=== PATIENT | female | born 1950 | race Caucasian/White ===

== ENCOUNTER 2016-12-12 12:16 | Inpatient (IN) | payer MEDICARE ==
[~2016-12-12] VITALS: Ht 167.6 cm; Wt 96.4 kg
[2016-12-12] MEDS ORDERED: NORVASC2.5 MG PO (13:11)
[2016-12-12] MEDS ORDERED: TIROSINT100 MC1 PO (13:11)
[2016-12-12] MEDS ORDERED: DYAZIDE 25 MG-31 CAP PO (13:12)
[2016-12-12 13:31] LABS: HEMATOCRIT 45.3 % (37.0-47.0); HEMOGLOBIN 15.3 g/dl (12.5-16.0); MEAN CELL VOLUME 84 fl (80.0-100.0); MEAN CORPUSCULAR HEMOGLOBIN 28 pg (27.0-31.0); MEAN CORPUSCULAR HGB CONC 34 g/dl (33.0-37.0); MEAN PLATELET VOLUME 9.4 fl (7.4-10.4); PLATELET COUNT 168 K/mm3 (130-400); WHITE BLOOD COUNT 10.7 K/mm3 (4.8-10.8)
[2016-12-12 13:32] LABS: ADD PATHOLOGY DIFF REVIEW NO
[2016-12-12 13:55] LABS: ADJUSTED CALCIUM 8.9 mg/dL (8.4-10.2); ALBUMIN 3.7 gm/dL (3.5-5.0); BILIRUBIN,TOTAL 0.9 mg/dL (0.0-1.0); C-REACTIVE PROTEIN 2.1 mg/dL (0.0-0.9); CALCIUM 8.7 mg/dL (8.4-10.2); CREATININE, serum 1.03 mg/dL (0.52-1.25); POTASSIUM 3.5 mmol/L (3.4-5.0); TOTAL PROTEIN 7.3 gm/dL (6.4-8.2)
[2016-12-12 14:05] LABS: BAND 8 % (0-10); BASOPHIL 1 % (0-2); EOSINOPHIL 1 % (0-4); LYMPHOCYTE 28 % (20.0-51.0); METAMYELOCYTE 1 % (0-0); NEUTROPHILS 52 % (42.0-75.2); PLATELET ESTIMATE NORMAL (NORMAL); TOTAL CELLS COUNTED 100
[2016-12-12 14:15] LABS: INR 1.1 (0.8-3.0); PROTHROMBIN TIME 11.7 SECONDS (9.7-12.8)
[2016-12-12 17:19] VITALS: BP 112/70; PULSE 86; TEMP 97.5
[2016-12-12 21:19] VITALS: BP 105/69; PULSE 95; TEMP 99.9
[2016-12-13] VITALS (8 sets, daily range): BP systolic 105–125; BP diastolic 62–84; PULSE 81–105; TEMP 98–100.2
[2016-12-13 08:02] LABS: BASO # 0.1 (0.0-0.2); BASO % 0.7 % (0.0-2.0); EOS # 0.1 (0.0-0.7); EOS % 1.2 % (0-4.0); GRAN # 3.4 (1.4-6.5); GRAN % 45.7 % (42.2-75.2); HEMATOCRIT 40.3 % (37.0-47.0); LYMPH % 40.5 % (20.0-51.0); MEAN CELL VOLUME 85 fl (80.0-100.0); MEAN CORPUSCULAR HEMOGLOBIN 28 pg (27.0-31.0); MEAN CORPUSCULAR HGB CONC 33 g/dl (33.0-37.0); MEAN PLATELET VOLUME 9.4 fl (7.4-10.4); MONO # 0.8 (0.1-0.6); MONO % 10.9 % (1.7-9.3); PLATELET COUNT 151 K/mm3 (130-400); RED BLOOD COUNT 4.72 M/mm3 (4.10-5.30); WHITE BLOOD COUNT 7.3 K/mm3 (4.8-10.8)
[2016-12-13 08:10] LABS: HEMOGLOBIN 13.1 g/dl (12.5-16.0)
[2016-12-13 08:12] LABS: ADJUSTED CALCIUM 8.7 mg/dL (8.4-10.2); ALBUMIN 2.9 gm/dL (3.5-5.0); BILIRUBIN,TOTAL 0.8 mg/dL (0.0-1.0); CALCIUM 7.8 mg/dL (8.4-10.2); CREATININE, serum 0.94 mg/dL (0.52-1.25); POTASSIUM 3.2 mmol/L (3.4-5.0); TOTAL PROTEIN 5.9 gm/dL (6.4-8.2)
[2016-12-13 09:29] LABS: INR 1.1 (0.8-3.0); PROTHROMBIN TIME 11.9 SECONDS (9.7-12.8)
[2016-12-13 14:03] LABS: MAGNESIUM 2.1 mg/dL (1.6-2.3)
[2016-12-14 03:01] VITALS: BP 117/76; PULSE 99; TEMP 100.5
[2016-12-14 08:27] VITALS: BP 122/62; PULSE 94; TEMP 98.9
[2016-12-14 08:58] LABS: BASO % 0.6 % (0.0-2.0); EOS % 0.6 % (0-4.0); GRAN # 3.2 (1.4-6.5); GRAN % 47.9 % (42.2-75.2); HEMATOCRIT 39.2 % (37.0-47.0); HEMOGLOBIN 12.9 g/dl (12.5-16.0); LYMPH # 2.5 (1.2-3.4); LYMPH % 38.3 % (20.0-51.0); MEAN CELL VOLUME 86 fl (80.0-100.0); MEAN CORPUSCULAR HEMOGLOBIN 28 pg (27.0-31.0); MEAN CORPUSCULAR HGB CONC 33 g/dl (33.0-37.0); MEAN PLATELET VOLUME 9.6 fl (7.4-10.4); MONO # 0.8 (0.1-0.6); PLATELET COUNT 163 K/mm3 (130-400); RED BLOOD COUNT 4.58 M/mm3 (4.10-5.30); WHITE BLOOD COUNT 6.6 K/mm3 (4.8-10.8)
[2016-12-14 09:07] LABS: INR 1.1 (0.8-3.0); PROTHROMBIN TIME 12.4 SECONDS (9.7-12.8)
[2016-12-14 09:10] LABS: CALCIUM 7.8 mg/dL (8.4-10.2); CREATININE, serum 0.84 mg/dL (0.52-1.25); POTASSIUM 3.7 mmol/L (3.4-5.0)
[2016-12-14 11:34] VITALS: BP 123/71; PULSE 100; TEMP 98.7
[2016-12-14 15:10] VITALS: BP 128/72; PULSE 100; TEMP 99.6
[2016-12-14 20:00] VITALS: BP 114/73; PULSE 97; TEMP 99.5
[2016-12-15] VITALS (19 sets, daily range): BP systolic 114–152; BP diastolic 70–105; PULSE 79–115; TEMP 97.8–101
[2016-12-15 08:59] LABS: INR 1.1 (0.8-3.0); PROTHROMBIN TIME 12.2 SECONDS (9.7-12.8)
[2016-12-15 17:57] LABS: MUCOUS Present /lpf; PH 6 (5-8); SQUAMOUS EPITHELIAL 0-2 /hpf; URINE APPEARANCE Clear; URINE BACTERIA None Seen /hpf; URINE BILIRUBIN Negative (NEGATIVE); URINE BLOOD Negative (NEGATIVE); URINE COLOR Yellow; URINE GLUCOSE Negative (NEGATIVE); URINE KETONE Trace (NEGATIVE); URINE LEUKOCYTE ESTERASE Negative (NEGATIVE); URINE PROTEIN(semi-quant) Negative (NEGATIVE); URINE RBC 0-2 /hpf; URINE UROBILINOGEN Negative (NEGATIVE); URINE WBC 0-2 /hpf
[2016-12-15 18:14] LABS: COLLECTION METHOD CLEAN CATCH
[2016-12-16 00:45] VITALS: BP 148/77; PULSE 89; TEMP 99
[2016-12-16 02:55] VITALS: BP 131/72; PULSE 91; TEMP 98.5
[2016-12-16 07:04] LABS: BASO % 0.7 % (0.0-2.0); EOS # 0.1 (0.0-0.7); EOS % 1.5 % (0-4.0); GRAN # 2.6 (1.4-6.5); GRAN % 44.1 % (42.2-75.2); HEMATOCRIT 38.1 % (37.0-47.0); HEMOGLOBIN 12.4 g/dl (12.5-16.0); LYMPH # 2.5 (1.2-3.4); LYMPH % 41.1 % (20.0-51.0); MEAN CELL VOLUME 86 fl (80.0-100.0); MEAN CORPUSCULAR HEMOGLOBIN 28 pg (27.0-31.0); MEAN CORPUSCULAR HGB CONC 33 g/dl (33.0-37.0); MEAN PLATELET VOLUME 9.6 fl (7.4-10.4); MONO # 0.7 (0.1-0.6); MONO % 11.6 % (1.7-9.3); PLATELET COUNT 145 K/mm3 (130-400); RED BLOOD COUNT 4.43 M/mm3 (4.10-5.30)
[2016-12-16 07:10] LABS: ADJUSTED CALCIUM 8.7 mg/dL (8.4-10.2); ALBUMIN 2.6 gm/dL (3.5-5.0); BILIRUBIN,TOTAL 1.4 mg/dL (0.0-1.0); CALCIUM 7.6 mg/dL (8.4-10.2); CREATININE, serum 0.89 mg/dL (0.52-1.25); POTASSIUM 4.2 mmol/L (3.4-5.0); TOTAL PROTEIN 5.5 gm/dL (6.4-8.2)
[2016-12-16 07:14] LABS: INR 1.2 (0.8-3.0); PROTHROMBIN TIME 13.3 SECONDS (9.7-12.8)
[2016-12-16 08:33] VITALS: BP 116/77; PULSE 87; TEMP 97.4
[2016-12-16 12:01] VITALS: BP 117/70; PULSE 101; TEMP 97.8
[2016-12-16 15:53] VITALS: BP 114/67; PULSE 107; TEMP 98.1
[2016-12-16 20:01] VITALS: BP 126/73; PULSE 109; TEMP 98.5
[2016-12-17 00:42] VITALS: BP 113/71; PULSE 85; TEMP 98.7
[2016-12-17 03:40] VITALS: BP 102/52; PULSE 86; TEMP 98.4
[2016-12-17 07:46] VITALS: BP 120/78; PULSE 88; TEMP 98.8
[2016-12-17 08:27] LABS: BASO % 0.7 % (0.0-2.0); EOS # 0.1 (0.0-0.7); EOS % 2.3 % (0-4.0); GRAN # 2.3 (1.4-6.5); GRAN % 41.8 % (42.2-75.2); HEMATOCRIT 40.1 % (37.0-47.0); HEMOGLOBIN 12.9 g/dl (12.5-16.0); LYMPH # 2.4 (1.2-3.4); LYMPH % 42.4 % (20.0-51.0); MEAN CELL VOLUME 87 fl (80.0-100.0); MEAN CORPUSCULAR HEMOGLOBIN 28 pg (27.0-31.0); MEAN CORPUSCULAR HGB CONC 32 g/dl (33.0-37.0); MEAN PLATELET VOLUME 9.2 fl (7.4-10.4); MONO # 0.7 (0.1-0.6); MONO % 11.7 % (1.7-9.3); PLATELET COUNT 181 K/mm3 (130-400); RED BLOOD COUNT 4.61 M/mm3 (4.10-5.30); WHITE BLOOD COUNT 5.6 K/mm3 (4.8-10.8)
[2016-12-17 08:45] LABS: ADJUSTED CALCIUM 8.7 mg/dL (8.4-10.2); ALBUMIN 2.9 gm/dL (3.5-5.0); BILIRUBIN,TOTAL 0.6 mg/dL (0.0-1.0); CALCIUM 7.8 mg/dL (8.4-10.2); CREATININE, serum 0.86 mg/dL (0.52-1.25); POTASSIUM 4.1 mmol/L (3.4-5.0); TOTAL PROTEIN 5.9 gm/dL (6.4-8.2)
[2016-12-17 09:56] LABS: INR 1.4 (0.8-3.0); PROTHROMBIN TIME 15.7 SECONDS (9.7-12.8)
[2016-12-17 11:28] VITALS: BP 117/77; PULSE 97; TEMP 98.4
[2016-12-17 15:16] VITALS: BP 144/88; PULSE 95; TEMP 98.5
[2016-12-17 23:10] VITALS: BP 117/69; PULSE 94; TEMP 98.3
[2016-12-18 03:05] VITALS: BP 118/73; PULSE 74; TEMP 98.6
[2016-12-18 07:08] LABS: INR 2.1 (0.8-3.0); PROTHROMBIN TIME 23.5 SECONDS (9.7-12.8)
[2016-12-18 08:34] VITALS: BP 105/66; PULSE 91; TEMP 98.5
[2016-12-18 11:37] VITALS: BP 103/61; PULSE 89; TEMP 98.4
[2016-12-18 15:10] VITALS: BP 127/75; PULSE 92; TEMP 97.9
[2016-12-18 21:02] VITALS: BP 123/76; PULSE 93; TEMP 98
[2016-12-19] VITALS (7 sets, daily range): BP systolic 111–176; BP diastolic 64–99; PULSE 62–105; TEMP 97.9–98.7
[2016-12-19 08:22] LABS: INR 1.8 (0.8-3.0); PROTHROMBIN TIME 20.5 SECONDS (9.7-12.8)
[2016-12-20 03:52] VITALS: BP 137/71; PULSE 81; TEMP 98.2
[2016-12-20 07:16] LABS: PROTHROMBIN TIME 22.9 SECONDS (9.7-12.8)
[2016-12-20 07:47] VITALS: BP 136/86; PULSE 106; TEMP 99.1
[2016-12-20] MEDS ORDERED: COUMADIN 5MG5 MG/TAB PO (09:10)
[2016-12-20] MEDS ORDERED: COUMADIN 77.5 MG/TAB PO (09:11)
== END 2016-12-20 10:56 | disposition home or self-care (01) | DRG 167 ==
LOC: COL.ER 12:16 → MEDICAL 15:35
PROVIDERS: Internal Medicine; Nurse Practitioner; Nurse Practitioner Family; Physician Assistant; Radiology Diagnostic Radiology
PROC: 06H03DZ Insertion of Intraluminal Device into Inferior Vena Cava, Percutaneous Approach (ICD-10-PCS; principal; 2016-12-13)
DX: I26.99 Other pulmonary embolism without acute cor pulmonale (principal); I82.422 Acute embolism and thrombosis of left iliac vein; I82.432 Acute embolism and thrombosis of left popliteal vein; E87.1 Hypo-osmolality and hyponatremia; I10 Essential (primary) hypertension; M06.9 Rheumatoid arthritis, unspecified; N63 Unspecified lump in breast; E87.6 Hypokalemia
CPT/HCPCS: 99223-AI; 99232-AI; 99233-AI; 99239; A9284; C1757; C1769; C1880; C1887; C1894; J1644; J1650; J2250; J2997; J3010; J7030; Q9967

== ENCOUNTER → 2020-07-18 | Outpatient (CLI) | payer MEDICARE ==
[~2020-07-18] MED LIST: COUMADIN 5MG5 MG/TAB PO; COUMADIN 77.5 MG/TAB PO; DYAZIDE 25 MG-31 CAP PO; NORVASC2.5 MG PO; TIROSINT100 MC1 PO
== END ==
LOC: MC.RAD 13:00
DX: Z85.3 Personal history of malignant neoplasm of breast (principal); Z98.890 Other specified postprocedural states

== ENCOUNTER → 2020-09-12 | Outpatient (CLI) | payer MEDICARE | LOC: COL.VAS 12:47 | DX: I11.9 Hypertensive heart disease without heart failure (principal); I51.7 Cardiomegaly ==

== ENCOUNTER → 2020-10-23 | Outpatient (CLI) | payer MEDICARE | LOC: ZCOL.LAB 09:28 | DX: Z02.83 Encounter for blood-alcohol and blood-drug test (principal); Z20.822 Contact with and (suspected) exposure to COVID-19 ==

== ENCOUNTER → 2021-09-17 | Outpatient (CLI) | payer MEDICARE | LOC: MC.RAD 07-20 10:00 | DX: Z12.31 Encounter for screening mammogram for malignant neoplasm of breast (principal); Z85.3 Personal history of malignant neoplasm of breast ==

== ENCOUNTER 2021-12-01 12:33 | Inpatient (IN) | payer MEDICARE ==
[~2021-12-01] VITALS: Ht 167.6 cm; Wt 107.1 kg
[2022-01-18] VITALS (11 sets, daily range): BP systolic 98–142; BP diastolic 66–84; PULSE 48–93; TEMP 97.7–98.6
[2022-01-18] MEDS ORDERED: FEMARA PO (05:43)
[2022-01-18] MEDS ORDERED: SYNTHROID0.1 MG/TAB PO (05:43)
[2022-01-18] MEDS ORDERED: ZESTRIL40 MG PO (05:44)
[2022-01-18] MEDS ORDERED: NORVASC2.5 MG PO (05:44)
[2022-01-18] MEDS ORDERED: TOPROL XL 50MG50 MG PO (05:44)
[2022-01-18] MEDS ORDERED: LIPITOR 40MG TA40 MG PO (05:45)
[2022-01-18] MEDS ORDERED: VITAMIN D31000 IU PO (05:45)
[2022-01-18] MEDS ORDERED: TYLENOL 500MG500 MG PO (05:45)
[2022-01-18] MEDS ORDERED: VITAMIN C500 MG PO (05:47)
[2022-01-18] MEDS ORDERED: FOLIC ACID0.4 MG PO ×2 (05:48→06:08)
[2022-01-18] MEDS ORDERED: NATURAL IRON65 MG PO (06:08)
--- NOTE | 2022-01-18 06:15 | NUR ---
Patient arrived to unit. Brought into bay [address] with , Donte. Patient ambulating with walking stick. CHG scrub done to right knee. Thigh high tyler hose applied to left lower extremity. Pre-surgery medications given per AUG. Scopolamine patch applied behind right ear. Patient states previous breast cancer surgery with lymph node removal on right side. Restricted Extremity arm band applied to right wrist. Patient consented to surgery. at bedside. Call light left within reach.
--- NOTE | 2022-01-18 08:50 | NUR ---
Medication reconcilliation lists hazardous drug: Femara (letrazole). Staff to wear PPE when handling urine for 10 days after last dose. If medication is actively administered, precautions are ongoing. 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
--- NOTE | 2022-01-18 14:48 | NUR ---
PT UP TO RECLINER AFTER VOIDING IN BR. INITIAL THERAPY EVAL COMPLETE, PT TOLERATING WELL.
--- NOTE | 2022-01-18 20:11 | NUR ---
PT A&O RESTING IN BED. AT BEDSIDE. PT RATES RT KNEE PAIN A 11/20. ICE APPLIED TO KNEE. LT HAND INT PATENT. SCDS APPLIED TO BLE. RT KNEE DRESSING CDI. NO OTHER NEEDS AT THIS TIME. CALL LIGHT WITHIN REACH.
[2022-01-19 00:45] VITALS: BP 151/70; PULSE 61; TEMP 99.3
[2022-01-19 04:16] VITALS: BP 134/70; PULSE 51; TEMP 98.6
[2022-01-19 06:24] LABS: HEMATOCRIT 43.7 % (37.0-47.0); HEMOGLOBIN 14.2 g/dl (12.5-16.0)
[2022-01-19 08:00] VITALS: BP 147/82; PULSE 51; TEMP 98.9
--- NOTE | 2022-01-19 09:48 | NUR ---
EDISON met with the patient and her , Donte (ph#[phone]), to discuss discharge plan. The patient lives in [place] with her . She reports independence with ADLs and has a walking stick and walker. The patient's PCP is Dr. Chantelle Arora and she receives her medications from [facility]. The patient does not have a DPOA-HC in EMR, but she states that she does have one completed and that she designated her . The patient plans to return home with her and receive outpatient PT at [facility] upon discharge. No additional needs at this time. *Discharge plan: home with and outpatient PT*
--- NOTE | 2022-01-19 10:28 | NUR ---
Initial visit; Patient thanked Ky for looking in on her and offering God's blessings.Patient was receptive to having [employer] keep her in her prayers.
[2022-01-19 11:19] VITALS: BP 152/67; TEMP 99
== END 2022-01-19 14:00 | disposition home or self-care (01) | DRG 470 ==
LOC: INPTSU 01-18 05:15 → SURG 01-18 07:30
PROVIDERS: ADMIT Orthopaedic Surgery
PROC: 0SRC0J9 Replacement of Right Knee Joint with Synthetic Substitute, Cemented, Open Approach (ICD-10-PCS; principal; 2022-01-18 07:30)
DX: M17.11 Unilateral primary osteoarthritis, right knee (principal); E78.5 Hyperlipidemia, unspecified; K21.9 Gastro-esophageal reflux disease without esophagitis; I10 Essential (primary) hypertension; Z86.711 Personal history of pulmonary embolism; Z86.718 Personal history of other venous thrombosis and embolism; Z72.89 Other problems related to lifestyle; Z79.01 Long term (current) use of anticoagulants
CPT/HCPCS: A9284; C1713; C1776; J0690; J1100; J2250; J2704; J2795; J3010; J7120